=== PATIENT | female | born 1965 | race Caucasian/White ===

== ENCOUNTER 2017-03-28 13:24 | Emergency (ER) | payer OTHER, MEDICAID ==
[~2017-03-28] VITALS: Ht 157.5 cm; Wt 54.4 kg
[~2017-03-28 13:24] MED LIST: BENZ2AMP2 IJ; DESM0.2T23 PO; DIPH25CA83 PO; FLUV100C PO; GABA800T PO; LAM100 PO; QUET400T PO; THOR25 PO
[2017-03-28 13:33] VITALS: BP_SYST 128
[2017-03-28] MEDS ORDERED: KETAMINE HCL 500 MG/10 ML VIAL IVP ONE ×2 (16:45→17:30)
[2017-03-28] MEDS ORDERED: MIDAZOLAM HCL 5 MG/5 ML VIAL IVP ONE ×2 (16:45→17:30)
[2017-03-28 17:14] LABS: BASOPHILS % (AUTO) 0.3 % (0.0-2.0); EOSINOPHILS # (AUTO) 0.3 K/uL (0.0-0.4); EOSINOPHILS % (AUTO) 4.5 % (0.0-4.0); HEMATOCRIT 37.5 % (36-48); HEMOGLOBIN 12.6 g/dL (12.0-16.0); LYMPHOCYTES # (AUTO) 1.4 K/uL (1.0-5.5); LYMPHOCYTES % (AUTO) 24.7 % (20.5-51.5); MEAN CORPUSCULAR HEMOGLOBIN 34 pg (27-31); MEAN CORPUSCULAR HGB CONC 34 % (32-36); MEAN CORPUSCULAR VOLUME 102 fL (79.0-98.0); MONOCYTES # (AUTO) 0.4 K/uL (0.0-1.0); MONOCYTES % (AUTO) 7.7 % (1.7-9.3); NEUTROPHILS # (AUTO) 3.5 K/uL (1.8-7.7); NEUTROPHILS % (AUTO) 62.8 % (40.0-70.0); PLATELET COUNT (AUTO) 212 K/uL (130-430); RED BLOOD CELL COUNT(AUTO) 3.67 MIL/uL (4.2-6.2); RED CELL DISTRIBUTION WIDTH 12.5 % (9.0-15.0); WHITE BLOOD COUNT (AUTO) 5.6 K/uL (4.8-10.8)
[2017-03-28 17:24] LABS: CALCIUM 8.4 mg/dL (8.4-11.0); CREATININE 0.73 mg/dL (0.55-1.30); POTASSIUM 3.7 mmol/L (3.5-5.1)
[2017-03-28 17:29] LABS: ALBUMIN 3.6 g/dL (3.4-4.8); TOTAL BILIRUBIN 0.3 mg/dL (0.0-1.0); TOTAL PROTEIN, SERUM 6.9 g/dL (6.4-8.3)
[2017-03-28 19:36] VITALS: BP_SYST 124
== END 2017-03-28 19:36 | disposition home or self-care (01) ==
LOC: SED 13:24
DX: T16.2XXA Foreign body in left ear, initial encounter (principal); F84.0 Autistic disorder; Z88.2 Allergy status to sulfonamides; Z79.899 Other long term (current) drug therapy; X58.XXXA Exposure to other specified factors, initial encounter; Y93.89 Activity, other specified; Y92.89 Other specified places as the place of occurrence of the external cause; Y99.8 Other external cause status
CPT/HCPCS: 36415; 80053; 85025; 99152; 99285; J2250

== ENCOUNTER 2023-05-12 11:15 | Emergency (ER) | payer OTHER, MEDICAID ==
[~2023-05-12] VITALS: Ht 165.1 cm; Wt 74.8 kg
[2023-05-12 11:39] VITALS: BP_SYST 161; PULSE 80; RESP 18; TEMP 97.4; O2SAT 96
[2023-05-12] MEDS ORDERED: DIPHTH,PERTUSS(ACELL),TET VAC 0.5 ML VIAL (Tdap) I.M. ONE (12:00)
[2023-05-12] MEDS ORDERED: BACITRACIN 1 GM OINT TP ONE (12:15)
[2023-05-12 12:49] VITALS: BP_SYST 161; PULSE 80; RESP 18; TEMP 97.4; O2SAT 96
== END 2023-05-12 12:46 | disposition home or self-care (01) ==
LOC: SED 11:15
DX: S01.01XA Laceration without foreign body of scalp, initial encounter (principal); Z88.2 Allergy status to sulfonamides; Z79.899 Other long term (current) drug therapy; W05.0XXA Fall from non-moving wheelchair, initial encounter; Y93.89 Activity, other specified; Y92.89 Other specified places as the place of occurrence of the external cause; Y99.8 Other external cause status
CPT/HCPCS: 90715; 99283